=== PATIENT | female | born 1945 | race Caucasian/White ===

== ENCOUNTER → 2018-02-28 | Outpatient (CLI) | payer MEDICARE | END | disposition home or self-care (01) | LOC: CFH 09:48 | PROVIDERS: ATTEND Surgery | DX: K57.30 Diverticulosis of large intestine without perforation or abscess without bleeding (principal); N82.3 Fistula of vagina to large intestine; K64.9 Unspecified hemorrhoids; N89.8 Other specified noninflammatory disorders of vagina | CPT/HCPCS: 74270 ==

== ENCOUNTER → 2018-04-04 | Outpatient (CLI) | payer MEDICARE ==
[~2018-04-04] MED LIST: ARTHRITIS PAIN PO; ASPI-621 PO; CALM PO; CHOL10003 PO; EQUATE ARTHRITIS PO; INSTAFLEX PO; LISI1TAB7 PO; LORA-856 PO; METRONIDAZOLE TP; NAPR-816 PO; NATURAL CALM MAG PO; NATURAL CALM PO; POTASSIUM PO; PRAV10TA2 PO; SLEEP PO; VITAMIN B12 PO
[2018-04-04 11:19] LABS: BASOPHILS # (AUTO) 0.03 x10^3/uL (0-0.1); BASOPHILS % (AUTO) 0 % (0-1); EOSINOPHILS % (AUTO) 1 % (1-7); LYMPHOCYTES # (AUTO) 1.88 x10^3/uL (1-3.4); LYMPHOCYTES % (AUTO) 19 % (22-44); MD NO; MEAN CORPUSCULAR HEMOGLOBIN 31.5 pg (27.0-34.8); MEAN CORPUSCULAR HGB CONC 34.1 g/dL (32.4-35.8); MEAN CORPUSCULAR VOLUME 92.3 fL (80-100); MEAN PLATELET VOLUME 9.5 fL (7.4-10.4); MONOCYTES # (AUTO) 0.68 x10^3/uL (0.2-0.8); MONOCYTES % (AUTO) 7 % (2-9); NEUTROPHILS # (AUTO) 7.42 x10^3/uL (1.8-6.8); NEUTROPHILS % (AUTO) 73 % (42-75); PLATELET COUNT 305 x10^3/uL (130-400); RED CELL DISTRIBUTION WIDTH 13.7 % (9.6-15.2)
[2018-04-04 11:28] LABS: ALANINE AMINOTRANSFERASE 33 U/L (12-78); ALBUMIN 4.3 g/dL (3.4-5.0); ANION GAP 10 mmol/L (5-15); CALCIUM 9.3 mg/dL (8.5-10.1); CHLORIDE 101 mmol/L (98-107); CREATININE 1.02 mg/dL (0.55-1.02)
[2018-04-04 11:30] LABS: ALKALINE PHOSPHATASE 140 U/L (45-117); BILIRUBIN,TOTAL 0.8 mg/dL (0.2-1.0); TOTAL PROTEIN 8.3 g/dL (6.4-8.2)
== END | disposition home or self-care (01) ==
LOC: STAR 09:46
PROVIDERS: ATTEND Surgery
DX: Z01.818 Encounter for other preprocedural examination (principal)
CPT/HCPCS: 36415; 80053; 85025; 93005

== ENCOUNTER → 2018-05-03 | Outpatient (CLI) | payer MEDICARE ==
[~2018-05-03] MED LIST changes: -ASPI-621 PO; +ASPI81TA45 PO
== END | disposition home or self-care (01) ==
LOC: CFH 11:24
PROVIDERS: ATTEND Surgery
DX: R05 Cough (principal); R42 Dizziness and giddiness
CPT/HCPCS: 71046

== ENCOUNTER 2018-09-15 12:55 | Observation (INO) | payer MEDICARE ==
[~2018-09-15] VITALS: Ht 167.6 cm; Wt 74.1 kg
[~2018-09-15 12:55] MED LIST changes: +BUPIVACAINE/EPI 0.5% 1:200K ONE
[2018-09-15 13:12] VITALS: BP 121/78
[2018-09-15] MEDS ORDERED: LACTATED RINGERS 1,000 ML IV SCH (13:27)
[2018-09-15] MEDS ORDERED: ACETAMINOPHEN 500 MG TABLET PO ONE (14:00)
[2018-09-15] MEDS ORDERED: PLEASE ENTER HEIGHT AND WEIGHT MC SCH (14:00)
[2018-09-15] MEDS ORDERED: GABAPENTIN 300 MG CAPSULE PO ONE (14:00)
[2018-09-15] MEDS ORDERED: BUPIVACAINE/EPI 0.5% 1:200K ONE (14:07)
[2018-09-15] MEDS ORDERED: BACITRACIN 50,000 UNIT ONE (14:08)
[2018-09-15] MEDS ORDERED: FENTANYL PF 250 MCG/5ML ONE (14:33)
[2018-09-15] MEDS ORDERED: PROPOFOL 10 MG/ML, 20ML ONE (14:34)
[2018-09-15] MEDS ORDERED: ROCURONIUM 10MG/ML,5ML ONE (14:34)
[2018-09-15] MEDS ORDERED: NEOSTIGMINE 1 MG/ML, 10ML ONE ×2 (14:34→16:00)
[2018-09-15] MEDS ORDERED: VANCOMYCIN 1,000 MG ONE (14:50)
[2018-09-15 14:58] LABS: ALANINE AMINOTRANSFERASE 26 U/L (12-78); ALBUMIN 4.1 g/dL (3.4-5.0); ANION GAP 6 mmol/L (5-15); CALCIUM 9.3 mg/dL (8.5-10.1); CHLORIDE 105 mmol/L (98-107); CREATININE 0.81 mg/dL (0.55-1.02)
[2018-09-15] MEDS ORDERED: PROMETHAZINE 25 MG SUPP PR PRN (15:00)
[2018-09-15] MEDS ORDERED: hydrALAzine 20 MG/ML, 1ML IV PRN ×2 (15:00→16:00)
[2018-09-15] MEDS ORDERED: ONDANSETRON 2MG/ML, 2ML IV PRN (15:00)
[2018-09-15] MEDS ORDERED: LABETALOL 5MG/ML, 20ML IV PRN (15:00)
[2018-09-15] MEDS ORDERED: PROMETHAZINE 25 MG/ML, 1ML IM PRN ×2 (15:00)
[2018-09-15] MEDS ORDERED: OXYcodone 5 MG/5 ML ORAL.SOL UDC PO PRN (15:00)
[2018-09-15] MEDS ORDERED: ONDANSETRON ODT 8 MG PO PRN (15:00)
[2018-09-15] MEDS ORDERED: MORPHINE SULFATE 4 MG/ML, 1ML IVPush PRN (15:00)
[2018-09-15] MEDS ORDERED: PROMETHAZINE 25 MG/ML, 1ML IV PRN (15:00)
[2018-09-15] MEDS ORDERED: PROMETHAZINE 12.5 MG SUPP PR PRN (15:00)
[2018-09-15] MEDS ORDERED: MEPERIDINE/PF 25MG/0.5ML IVPush PRN (15:00)
[2018-09-15 15:01] LABS: ALKALINE PHOSPHATASE 96 U/L (45-117); BILIRUBIN,TOTAL 0.4 mg/dL (0.2-1.0); TOTAL PROTEIN 7.5 g/dL (6.4-8.2)
[2018-09-15] MEDS ORDERED: ONDANSETRON 2MG/ML, 2ML ONE (15:08)
[2018-09-15] MEDS ORDERED: DEXAMETHASONE 4 MG/ML, 1ML ONE (15:08)
[2018-09-15] MEDS ORDERED: PHENYLEPHRINE 10 MG/ML ONE (15:08)
[2018-09-15] MEDS ORDERED: GLYCOPYRROLATE 0.4 MG/2 ML, 2ML ONE ×2 (15:41→15:59)
[2018-09-15] MEDS ORDERED: OXYcodone/APAP 5/325MG TABLET PO PRN (16:00)
[2018-09-15] MEDS ORDERED: DIPHENHYDRAMINE 50 MG/ML, 1ML IV PRN (16:00)
[2018-09-15] MEDS ORDERED: ENOXAPARIN 40 MG/0.4 ML SQ SCH (16:00)
[2018-09-15] MEDS ORDERED: LORazepam 2 MG/ML, 1ML IV PRN (16:00)
[2018-09-15] MEDS ORDERED: ONDANSETRON 2MG/ML, 2ML IVPush PRN (16:00)
[2018-09-15] MEDS ORDERED: HYDROmorphone 2 MG/ML, 1ML IVPush PRN (16:00)
[2018-09-15] MEDS ORDERED: ENALAPRILAT 1.25 MG/ML, 2ML IV PRN (16:00)
[2018-09-15] MEDS ORDERED: ACETAMINOPHEN 650 MG/20.3 ML UDC PO PRN (16:00)
[2018-09-15] MEDS ORDERED: SUGAMMADEX 200 MG/2 ML IVPush ONE (16:05)
[2018-09-15] MEDS ORDERED: FENTANYL PF 100 MCG/2ML ONE (16:25)
[2018-09-15] MEDS ORDERED: OXYcodone 5 MG/5 ML ORAL.SOL UDC ONE (16:26)
[2018-09-15] MEDS: FENTANYL PF 100 MCG/2ML IV PRN ×2 (16:27→16:35)
[2018-09-15] MEDS ORDERED: HYDROmorphone 2 MG/ML, 1ML ONE (16:37)
[2018-09-15] MEDS: HYDROmorphone 2 MG/ML, 1ML IVPush PRN ×2 (16:40→16:50)
[2018-09-15] MEDS ORDERED: MEPERIDINE/PF 25MG/ML,1ML ONE (17:01)
[2018-09-15 18:30] VITALS: BP 101/65
[2018-09-15 18:34] VITALS: BP 101/65
[2018-09-15] MEDS: CIPROFLOXACIN/PMX 400MG/200ML 200 ML IVPB SCH (20:31)
[2018-09-15] MEDS: LACTATED RINGERS 1,000 ML IV SCH (22:25)
[2018-09-16 00:25] VITALS: BP 76/44
[2018-09-16 03:54] VITALS: BP 92/60
[2018-09-16] MEDS: LACTATED RINGERS 1,000 ML IV SCH ×2 (04:06→13:16)
[2018-09-16 05:19] LABS: BASOPHILS % (AUTO) 0 % (0-1); EOSINOPHILS % (AUTO) 0 % (1-7); LYMPHOCYTES # (AUTO) 0.67 x10^3/uL (1-3.4); LYMPHOCYTES % (AUTO) 7 % (22-44); MD NO; MEAN CORPUSCULAR HEMOGLOBIN 30.9 pg (27.0-34.8); MEAN CORPUSCULAR VOLUME 90.9 fL (80-100); MEAN PLATELET VOLUME 10.6 fL (7.4-10.4); MONOCYTES # (AUTO) 0.16 x10^3/uL (0.2-0.8); MONOCYTES % (AUTO) 2 % (2-9); NEUTROPHILS # (AUTO) 8.22 x10^3/uL (1.8-6.8); NEUTROPHILS % (AUTO) 91 % (42-75); PLATELET COUNT 224 x10^3/uL (130-400); RED CELL DISTRIBUTION WIDTH 14.4 % (9.6-15.2)
[2018-09-16 05:33] LABS: CHLORIDE 105 mmol/L (98-107)
[2018-09-16 06:04] LABS: ALANINE AMINOTRANSFERASE 20 U/L (12-78); ALBUMIN 3.4 g/dL (3.4-5.0); ALKALINE PHOSPHATASE 78 U/L (45-117); ANION GAP 8 mmol/L (5-15); BILIRUBIN,TOTAL 0.4 mg/dL (0.2-1.0); CALCIUM 8.7 mg/dL (8.5-10.1); TOTAL PROTEIN 6.8 g/dL (6.4-8.2)
[2018-09-16 08:00] VITALS: BP 77/48
[2018-09-16] MEDS: CIPROFLOXACIN/PMX 400MG/200ML 200 ML IVPB SCH (08:51)
[2018-09-16] MEDS ORDERED: OXYC1TAB7 PO (09:26)
[2018-09-16 13:34] VITALS: BP 110/65
[2018-09-16] MEDS ORDERED: ONDA4TAB7 PO (14:09)
[2018-09-16] MEDS ORDERED: CIPR500T87 PO (14:09)
[2018-09-16] MEDS ORDERED: OXYC5TAB3 PO (14:10)
== END 2018-09-16 14:30 | disposition home or self-care (01) ==
LOC: OR 12:55 → ORIP 15:56 → 4NOR 18:19 → DCLOUNGE 09-16 14:18
PROVIDERS: ADMIT Surgery; ATTEND Surgery
DX: K43.0 Incisional hernia with obstruction, without gangrene (principal)
CPT/HCPCS: 36415; 49655; 80053; 85025; 93005; 96365; 96366; 96372; 96375; C1781; G0378; J0744; J1100; J1170; J1650; J2175; J2270; J2370; J2405; J2704; J3010; J3370; J7120; J2710